=== PATIENT | female | born 1980 | race Caucasian/White ===

== ENCOUNTER 2019-07-05 15:53 | Emergency (ER) | payer OTHER ==
[~2019-07-05] VITALS: Ht 185.4 cm; Wt 137.3 kg
[~2019-07-05 15:53] MED LIST: ACET325T14 PO; AMIO200T42 PO; CLON0.5T PO; FENUGREEK PO; FERR324T8 PO; HYDR-3240 PO; IBUP-1223 PO; LABE100T26 PO; LISI-167 PO; LORA-446 PO; OXYC-293 PO; PRED20TA PO; PREN1TAB60 PO; RIVA20TA PO; VENL37.52 PO; WARF10TA PO
--- NOTE | 2019-07-05 16:57 | NUR ---
Pt to rm 27 from [facility]
[2019-07-05 17:33] LABS: BASOPHILS # (AUTO) 0.07 x10^3/uL (0-0.1); BASOPHILS % (AUTO) 1 % (0-1); EOSINOPHILS # (AUTO) 0.12 x10^3/uL (0-0.4); EOSINOPHILS % (AUTO) 1 % (1-7); LYMPHOCYTES # (AUTO) 2.15 x10^3/uL (1-3.4); LYMPHOCYTES % (AUTO) 26 % (22-44); MD NO; MEAN CORPUSCULAR HEMOGLOBIN 29.2 pg (27.0-34.8); MEAN CORPUSCULAR HGB CONC 33.1 g/dL (32.4-35.8); MEAN CORPUSCULAR VOLUME 88.2 fL (80-100); MEAN PLATELET VOLUME 8.3 fL (7.4-10.4); MONOCYTES % (AUTO) 9 % (2-9); NEUTROPHILS # (AUTO) 5.29 x10^3/uL (1.8-6.8); NEUTROPHILS % (AUTO) 64 % (42-75); PLATELET COUNT 246 x10^3/uL (130-400); RED BLOOD COUNT 4.63 x10^6/uL (3.82-5.3); RED CELL DISTRIBUTION WIDTH 13.4 % (9.6-15.2)
[2019-07-05 17:42] LABS: ALANINE AMINOTRANSFERASE 20 U/L (12-78); ALBUMIN 3.4 g/dL (3.4-5.0); ANION GAP 7 mmol/L (5-15); CALCIUM 8.6 mg/dL (8.5-10.1); CHLORIDE 109 mmol/L (98-107); CREATININE 0.94 mg/dL (0.55-1.02)
[2019-07-05 17:46] LABS: ALKALINE PHOSPHATASE 60 U/L (45-117); BILIRUBIN,TOTAL 0.3 mg/dL (0.2-1.0); TOTAL PROTEIN 7.1 g/dL (6.4-8.2)
[2019-07-05 17:48] LABS: MICROSCOPIC NOT IND
--- NOTE | 2019-07-05 17:51 | NUR ---
pt to us now
[2019-07-05 17:54] LABS: CULTURE INDICATED? NO
[2019-07-05 17:58] VITALS: BP 156/99
--- NOTE | 2019-07-05 18:06 | NUR ---
. pt back from [facility]. pt resting in bed at this time. pt pain reported 5/10 lower left quadrant. pt has hx of ovarian cysts. pt doen not want any pain medications at this time. pt encouraged to reprt any changes to this rn.
== END 2019-07-05 18:51 | disposition home or self-care (01) ==
LOC: ED 17:35
DX: N92.1 Excessive and frequent menstruation with irregular cycle (principal); I48.91 Unspecified atrial fibrillation; I10 Essential (primary) hypertension
CPT/HCPCS: 36415; 76830; 80053; 81003; 84703; 85025; 99284

== ENCOUNTER 2020-07-28 22:30 | Emergency (ER) | payer OTHER ==
[~2020-07-28] VITALS: Ht 185.4 cm; Wt 140.5 kg
[~2020-07-28 22:30] MED LIST changes: +HYDR-1067 PO; -HYDR-3240 PO
--- NOTE | 2020-07-28 23:10 | NUR ---
CC OF PAIN ON BACK OF LEG RIGHT BEHIND KNEE. RED/PURPLE DISCOLORATION NOTED, SIMILAR TO A BRUISE. PT STATES IT IS NOT A BRUISE, RATES PAIN 4/10 REST, 9/10 PAIN WITH MOVEMENT. SPOUSE AT BEDSIDE, PT AND MAKING JOKES.
--- NOTE | 2020-07-28 23:23 | NUR ---
US AT BEDSIDE
[2020-07-29 00:08] VITALS: BP 106/72
== END 2020-07-29 00:10 | disposition home or self-care (01) ==
LOC: ED 23:33
DX: M79.661 Pain in right lower leg (principal); M25.561 Pain in right knee; I10 Essential (primary) hypertension; I48.91 Unspecified atrial fibrillation
CPT/HCPCS: 99284

== ENCOUNTER 2020-11-14 11:06 | Emergency (ER) | payer OTHER ==
[~2020-11-14] VITALS: Ht 185.4 cm; Wt 145.3 kg
[~2020-11-14 11:06] MED LIST changes: -HYDR-1067 PO; +HYDR-2214 PO
[2020-11-14 11:37] LABS: BASOPHILS % (AUTO) 1 % (0-1); EOSINOPHILS % (AUTO) 1 % (1-7); LYMPHOCYTES % (AUTO) 19 % (22-44); MEAN CORPUSCULAR HEMOGLOBIN 30.5 pg (27.0-34.8); MEAN PLATELET VOLUME 7.9 fL (7.4-10.4); MONOCYTES % (AUTO) 7 % (2-9); NEUTROPHILS % (AUTO) 72 % (42-75); PLATELET COUNT 234 x10^3/uL (130-400); RED BLOOD COUNT 4.63 x10^6/uL (3.82-5.3); RED CELL DISTRIBUTION WIDTH 13.4 % (9.6-15.2)
[2020-11-14 11:38] LABS: MD NO
[2020-11-14 11:49] LABS: ANION GAP 4 mmol/L (5-15); CALCIUM 8.8 mg/dL (8.5-10.1); CHLORIDE 111 mmol/L (98-107); CREATININE 0.83 mg/dL (0.55-1.02)
[2020-11-14 11:53] LABS: TROPONIN I < 0.015 ng/mL (0.000-0.045)
--- NOTE | 2020-11-14 12:10 | NUR ---
ERMD AT BEDSIDE FOR RECHECK EVALUATION.
[2020-11-14 12:25] VITALS: BP 133/80
== END 2020-11-14 12:29 | disposition home or self-care (01) ==
LOC: ED 12:01
DX: R00.2 Palpitations (principal); R07.89 Other chest pain; I10 Essential (primary) hypertension; I48.91 Unspecified atrial fibrillation; F17.200 Nicotine dependence, unspecified, uncomplicated; Z86.711 Personal history of pulmonary embolism
CPT/HCPCS: 36415; 71045; 80048; 82040; 84436; 84443; 84484; 85025; 85379; 93005; 99285